=== PATIENT | female | born 1990 ===

== ENCOUNTER 2021-01-25 11:05 | Inpatient (IN) | payer OTHER ==
[~2021-01-25] VITALS: Ht 165.1 cm; Wt 3.2 kg
[2021-01-25] MEDS ORDERED: CHILDREN'S ASPI81 MG PO (12:14)
[2021-01-25] MEDS ORDERED: PRENATAL CAPLE1 EAC1 PO (12:14)
== END 2021-01-27 17:53 | disposition home or self-care (01) | DRG 788 ==
LOC: O/R 11:05 → OB/GYN 11:05 → LDR 11:05 → O/R 18:50 → OB/GYN 21:18
PROVIDERS: ADMIT Obstetrics & Gynecology; ATTEND Obstetrics & Gynecology
PROC: 4A1HXFZ Monitoring of Products of Conception, Cardiac Rhythm, External Approach (ICD-10-PCS; 2021-01-25)
PROC: 10D00Z1 Extraction of Products of Conception, Low, Open Approach (ICD-10-PCS; principal; 2021-01-25 19:00)
DX: O82 Encounter for cesarean delivery without indication (principal); Z37.0 Single live birth; Z3A.39 39 weeks gestation of pregnancy; Z20.822 Contact with and (suspected) exposure to COVID-19

== ENCOUNTER 2022-06-24 21:48 | Emergency (ER) | payer OTHER ==
[~2022-06-24] VITALS: Ht 165.1 cm; Wt 94.3 kg
[~2022-06-24 21:48] MED LIST: CHILDREN'S ASPI81 MG PO; PRENATAL CAPLE1 EAC1 PO
== END 2022-06-25 04:04 ==
LOC: ER 21:48
DX: N93.9 Abnormal uterine and vaginal bleeding, unspecified (principal); Z88.2 Allergy status to sulfonamides

== ENCOUNTER 2022-11-29 15:17 | Inpatient (IN) | payer OTHER ==
[~2022-11-29] VITALS: Ht 165.1 cm; Wt 3.2 kg
[2022-12-04] MEDS ORDERED: FOLIC ACID0.8 M1 PO (09:09)
[2022-12-04] MEDS ORDERED: VITAMIN E400 UNI7 PO (09:10)
[2022-12-07] MEDS ORDERED: IBUPROFEN800 MG PO (07:00)
== END 2022-12-07 12:53 | disposition home or self-care (01) | DRG 785 ==
LOC: OB/GYN 12-04 09:45 → O/R 12-04 12:02 → OB/GYN 12-04 14:47
PROVIDERS: ADMIT Obstetrics & Gynecology; ATTEND Obstetrics & Gynecology
PROC: 0UB70ZZ Excision of Bilateral Fallopian Tubes, Open Approach (ICD-10-PCS; 2022-12-04)
PROC: 4A1HXCZ Monitoring of Products of Conception, Cardiac Rate, External Approach (ICD-10-PCS; 2022-12-04)
PROC: 10D00Z1 Extraction of Products of Conception, Low, Open Approach (ICD-10-PCS; principal; 2022-12-04 19:00)
DX: O34.211 Maternal care for low transverse scar from previous cesarean delivery (principal); Z30.2 Encounter for sterilization; Z37.0 Single live birth; Z20.822 Contact with and (suspected) exposure to COVID-19; Z3A.39 39 weeks gestation of pregnancy